=== PATIENT | male | born 1990 | race African-American/Black ===

== ENCOUNTER 2018-02-07 12:57 | Emergency (ER) | payer BC, OTHER ==
[~2018-02-07 12:57] MED LIST: Z.0.NO CURRENT MEDS
[2018-02-07 13:10] VITALS: BP 133/78; PULSE 73; RESP 16; TEMP 98.7; O2SAT 98
[2018-02-07] MEDS ORDERED: DIPHTH/TETANUS/ACEL PERTUSSIS (BOOSTER) 0.5 ML VIAL/PFS IM ONE (14:45)
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
== END 2018-02-07 15:30 | disposition home or self-care (01) ==
LOC: NEPD 12:57
DX: S01.01XA Laceration without foreign body of scalp, initial encounter (principal); Z23 Encounter for immunization; W22.8XXA Striking against or struck by other objects, initial encounter
CPT/HCPCS: 12002; 70450; 90471; 90715